=== PATIENT | female | born 1985 | race Caucasian/White ===

== ENCOUNTER 2016-07-05 10:57 | Emergency (ER) | payer BC ==
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
--- NOTE | 2016-07-05 14:23 | ED ORDER SUMMARY ---
..... Patient: MALAIKA MULLINS OrderSheet [facility] VisitID: [id number] [place] [address] 30y, F Registration Date/Time: 07/05/2016 ORDER SHEET Weight: 88.4 kg (stated) Allergies: Eggs or Egg-derived Products, Peanut-containing Drug Products, Hazelnuts GENERAL ORDERS: POC - Urine hCG (11:57 07/05/2016 Antonio Alvarado) (Ack 12:06 JBoardlealex R.N.) (13:05 GEORGIAassan R.N.) Ribs Unilat w PA Chest Left Urgent (13:06 07/05/2016 Antonio Alvarado) (Ack 13:10 Baldemar) (13:31 Baldemar) Knee 4V Left Urgent (13:06 07/05/2016 Antonio Alvarado) (Ack 13:10 Baldemar) (13:31 Baldemar) MEDICATION ORDERS: Hydrocodone-APAP PO 5/325 mg (NOW, HIGH ALERT MEDICATION) (11:57 07/05/2016 Antonio Alvarado) (Ack 12:01 JBoardley R.N.) (12:04 JBoardley R.N.) Zofran ODT PO 4 mg (NOW) (11:57 07/05/2016 Antonio Alvarado) (Ack 12:01 JBoardley R.N.) (12:04 JBoardley R.N.) IV FLUIDS: ORDER SHEET NOTES: [Electronically signed by Yuliya Flores R.N. (14:54 07/05/2016)] [Electronically signed by Ez Sarah Dr. (20:56 07/06/2016)] [Electronically locked/signed by Yuliya Flores R.N. (14:54 07/05/2016)]
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
--- NOTE | 2016-07-05 14:23 | ED ORDER SUMMARY ---
..... Patient: MALAIKA MULLINS OrderSheet [facility] VisitID: [id number] [place] [address] 30y, F Registration Date/Time: 07/05/2016 ORDER SHEET Weight: 88.4 kg (stated) Allergies: Eggs or Egg-derived Products, Peanut-containing Drug Products, Hazelnuts GENERAL ORDERS: POC - Urine hCG (11:57 07/05/2016 Antonio Alvarado) (Ack 12:06 JBoardlealex R.N.) (13:05 GEORGIAassan R.N.) Ribs Unilat w PA Chest Left Urgent (13:06 07/05/2016 Antonio Alvarado) (Ack 13:10 Baldemar) (13:31 Baldemar) Knee 4V Left Urgent (13:06 07/05/2016 Antonio Alvarado) (Ack 13:10 Baldemar) (13:31 Baldemar) MEDICATION ORDERS: Hydrocodone-APAP PO 5/325 mg (NOW, HIGH ALERT MEDICATION) (11:57 07/05/2016 Antonio Alvarado) (Ack 12:01 JBoardley R.N.) (12:04 JBoardley R.N.) Zofran ODT PO 4 mg (NOW) (11:57 07/05/2016 Antonio Alvarado) (Ack 12:01 JBoardley R.N.) (12:04 JBoardley R.N.) IV FLUIDS: ORDER SHEET NOTES: [Electronically signed by Yuliya Flores R.N. (14:54 07/05/2016)] [Electronically signed by Ez Sarah Dr. (20:56 07/06/2016)] [Electronically locked/signed by Yuliya Flores R.N. (14:54 07/05/2016)]
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
--- NOTE | 2016-07-06 20:56 | ED MAR SUMMARY ---
..... Medication Administration Record [facility] [address] [place] [address] Patient: MALAIKA MULLINS Visit ID: [id number] 30y, F Weight: 88.4 kg Height/Length: 59 in BMI: 39.4 ALLERGIES: Hazelnuts, Peanut-containing Drug Products, Eggs or Egg-derived Products Given 11:59 07/05/2016 Cristian Ayon R.N. Medication Administered: HYDROCODONE-APAP [PO] (HYDROCODONE-ACETAMINOPHEN), Dose: 1 tab 5/325 mg Tablets PO. Medication Ordered: Hydrocodone-APAP PO 5/325 mg (NOW, HIGH ALERT MEDICATION). Given 12:04 07/05/2016 Cristian Ayon R.N. Medication Administered: ZOFRAN ODT [PO] (ONDANSETRON), Dose: 4 mg PO. Medication Ordered: Zofran ODT PO 4 mg (NOW).
--- NOTE | 2016-07-06 20:56 | ED MAR SUMMARY ---
..... Medication Administration Record [facility] [address] [place] [address] Patient: MALAIKA MULLINS Visit ID: [id number] 30y, F Weight: 88.4 kg Height/Length: 59 in BMI: 39.4 ALLERGIES: Hazelnuts, Peanut-containing Drug Products, Eggs or Egg-derived Products Given 11:59 07/05/2016 Cristian Ayon R.N. Medication Administered: HYDROCODONE-APAP [PO] (HYDROCODONE-ACETAMINOPHEN), Dose: 1 tab 5/325 mg Tablets PO. Medication Ordered: Hydrocodone-APAP PO 5/325 mg (NOW, HIGH ALERT MEDICATION). Given 12:04 07/05/2016 Cristian Ayon R.N. Medication Administered: ZOFRAN ODT [PO] (ONDANSETRON), Dose: 4 mg PO. Medication Ordered: Zofran ODT PO 4 mg (NOW).
--- NOTE | 2016-07-06 20:56 | ED MED RECONCILIATION SUMMARY ---
Patient: MALAIKA MULLINS Medication Reconciliation Report [facility] VisitID: [id number] [address] [place] [address] 30y, F Registration Date/Time: 07/05/2016 Weight: 88.4 kg Height/Length: 59 in. BMI: 39.4 ALLERGIES: Eggs or Egg-derived Products, Hazelnuts, Peanut-containing Drug Products The patient's Home Medications are listed below: CONTINUE TAKING THE FOLLOWING MEDICATIONS: Flonase Nasal Multivitamin Oral ZyrTEC Allergy Oral The source(s) of the original Home Medication information: patient The following Medications were given to the patient in the Emergency Department: Hydrocodone-APAP [PO] PO 1 tab, administered: 07/05/2016 11:59:00 AM Zofran ODT [PO] PO 4 mg, administered: 07/05/2016 12:04:00 PM The following Medications were prescribed to the patient: Hydrocodone/APAP 5mg / 325mg: take 1 orally every 6 hours as needed for pain. Dispense fifteen (15). No refill. -- Ez Sarah Dr. Diclofenac 50 mg tablets: take 1 tablet orally every 8 hours as needed for pain or stiffness. Dispense thirty (30). No refill. -- Ez Sarah Dr.
--- NOTE | 2016-07-06 20:56 | ED MED RECONCILIATION SUMMARY ---
Patient: MALAIKA MULLINS Medication Reconciliation Report [facility] VisitID: [id number] [address] [place] [address] 30y, F Registration Date/Time: 07/05/2016 Weight: 88.4 kg Height/Length: 59 in. BMI: 39.4 ALLERGIES: Eggs or Egg-derived Products, Hazelnuts, Peanut-containing Drug Products The patient's Home Medications are listed below: CONTINUE TAKING THE FOLLOWING MEDICATIONS: Flonase Nasal Multivitamin Oral ZyrTEC Allergy Oral The source(s) of the original Home Medication information: patient The following Medications were given to the patient in the Emergency Department: Hydrocodone-APAP [PO] PO 1 tab, administered: 07/05/2016 11:59:00 AM Zofran ODT [PO] PO 4 mg, administered: 07/05/2016 12:04:00 PM The following Medications were prescribed to the patient: Hydrocodone/APAP 5mg / 325mg: take 1 orally every 6 hours as needed for pain. Dispense fifteen (15). No refill. -- Ez Sarah Dr. Diclofenac 50 mg tablets: take 1 tablet orally every 8 hours as needed for pain or stiffness. Dispense thirty (30). No refill. -- Ez Sarah Dr.
== END 2016-07-05 14:31 | disposition home or self-care (01) ==
LOC: ED SRH 10:57
DX: S20.212A Contusion of left front wall of thorax, initial encounter (principal); S80.02XA Contusion of left knee, initial encounter; S80.01XA Contusion of right knee, initial encounter; V43.53XA Car driver injured in collision with pick-up truck in traffic accident, initial encounter; Y93.89 Activity, other specified; Y92.410 Unspecified street and highway as the place of occurrence of the external cause; Y99.9 Unspecified external cause status; Z79.899 Other long term (current) drug therapy; Z91.012 Allergy to eggs; Z91.018 Allergy to other foods